=== PATIENT | male | born 1985 | race African-American/Black ===

== ENCOUNTER 2022-08-20 16:13 | Emergency (ER) | payer OTHER ==
[2022-08-20 16:31] VITALS: BP 140/91; PULSE 68; RESP 20; TEMP 98.2; BMI 28.8
== END 2022-08-20 19:07 | disposition home or self-care (01) ==
LOC: JER 16:13
DX: R09.89 Other specified symptoms and signs involving the circulatory and respiratory systems (principal)
CPT/HCPCS: 70490-TC; 99284-25